=== PATIENT | male | born 1960 | race Caucasian/White ===

== ENCOUNTER 2020-03-09 17:53 | Emergency (ER) | payer BC ==
--- NOTE | 2020-03-09 18:48 | EDM.PDOC ---
<ZenobiaJovani Angelique - Last Filed: 03/09/20 18:35> ED HPI GENERAL MEDICAL PROBLEM - General Chief Complaint: Skin Complaint Stated Complaint: SWOLLEN LEFT ELBOW Time Seen by Provider: 03/09/20 18:10 Source of Information: Reports: Patient History Limitations: Reports: No Limitations - History of Present Illness INITIAL COMMENTS - FREE TEXT/NARRATIVE: Tres is a 60 YO male that presents to the ED for a swollen and inflamed left elbow. Last Tuesday (03/05/2020), he noticed a small "pimple-like" bump on his left elbow near the olecranon. He thought it was an ingrown hair due to pus and hair coming from the bump after applying pressure. Yesterday, he began to have tenderness, redness, and swelling in that elbow. Symptoms span from mid upper arm to mid forearm and have been worsening over the past day. He denies fever, nausea, vomiting, decreased range of motion or strength, or possibility of trauma. Onset: Gradual Onset Date: 03/08/20 Duration: Day(s): Location: Reports: Upper Extremity, Left Quality: Reports: Throbbing Left Elbow Pain Score (Numeric/FACES): 6 - Related Data Allergies Allergy/AdvReac Type Severity Reaction Status Date / Time No Known Allergies Allergy Verified 03/09/20 18:09 Home Meds: Home Meds Albuterol [Proair HFA] 2 inh INH ASDIRECTED PRN 05/05/14 [History] Aspirin [Halfprin] 1 tab PO DAILY 05/05/14 [History] Fexofenadine [Maryann] 1 tab PO DAILY 05/05/14 [History] Levothyroxine Sodium [Synthroid] 237 mcg PO DAILY 05/05/14 [History] Montelukast [Singulair] 10 mg PO DAILY 05/05/14 [History] Tamsulosin [Flomax] 1 tab PO DAILY 05/05/14 [History] amLODIPine Besylate [Amlodipine Besylate] 5 mg PO DAILY 05/05/14 [History] metFORMIN [Glucophage] 500 mg PO DAILY 05/05/14 [History] Cholecalciferol (Vitamin D3) [Vitamin D] 5,000 unit PO DAILY 03/09/20 [History] Cyanocobalamin (Vitamin B-12) [Vitamin B12] 5,000 mcg PO DAILY 03/09/20 [History] Doxycycline [Vibramycin] 100 mg PO BID #19 tab 03/09/20 [Rx] Finasteride 5 mg PO DAILY 03/09/20 [History] Fluticasone Propionate 50 mcg NS BID 03/09/20 [History] Lisinopril/Hydrochlorothiazide [Lisinopril-HCTZ 10-12.5 MG] 1 tab PO DAILY [History] Orlistat [Miguelangel] 60 mg PO QID 03/09/20 [History] Rosuvastatin [Crestor] 10 mg PO DAILY 03/09/20 [History] Vitamin E (Dl,Tocopheryl Acet) [Vitamin E] 450 mg PO DAILY 03/09/20 [History] Past Medical History Other Genitourinary History: prostate Other Endocrine/Metabolic History: thyroid cancer - Past Surgical History GI Surgical History: Reports: Colonoscopy Musculoskeletal Surgical History: Reports: Arthroscopic Knee, Shoulder Surgery Social & Family History - Tobacco Use Smoking Status *Q: Never Smoker - Caffeine Use Caffeine Use: Reports: Coffee - Recreational Drug Use Recreational Drug Use: No ED ROS GENERAL - Review of Systems Review Of Systems: See Below Constitutional: Denies: Fever, Chills GI/Abdominal: Denies: Nausea, Vomiting Musculoskeletal: Reports: Arm Pain, Joint Swelling Skin: Reports: Erythema, Change in Color ED EXAM, SKIN/RASH Exam: See Below Exam Limited By: No Limitations General Appearance: Alert, No Apparent Distress Head: Atraumatic, Normocephalic Respiratory/Chest: No Respiratory Distress, Lungs Clear, Normal Breath Sounds, No Accessory Muscle Use Cardiovascular: Regular Rate, Rhythm, No Gallop, No Murmur, No Rub Extremities: Joint Swelling, Arm Pain, Increased Warmth, Redness Skin: Erythema, Increased Warmth (Area of swelling and erythema from mid upper arm to mid forearm. ) Location, Skin: Upper Extremity, Left Characteristics: Erythematous Associated features: Tenderness, Swelling Departure - Departure Disposition: Home, Self-Care 01 Clinical Impression: Cellulitis of left elbow - Discharge Information Prescriptions: Doxycycline [Vibramycin] 100 mg PO BID #19 tab Instructions: Cellulitis, Adult, [id number] Referrals: Guido Mcfarland MD [Primary Care Provider] - Forms: ED Department Discharge Additional Instructions: You were evaluated in the ER today regarding a suspected skin infection. It does appear that you have a cellulitis. Your skin was marked around the borders of the redness, if this redness should extend 2 finger widths past this initial guido, recommend you seek care for re-evaluation. You were given a antibiotic, doxycycline 100mg BID x 10 days please take as prescribed until the course is done or told otherwise by different provider. Please note that this antibiotic will take at least 48 hours to start working appropriately. You may try to use heat/ice packs to the area to help reduce pain/swelling. You may take 500 mg Tylenol or 600 mg ibuprofen every 6 hours as needed for further pain relief. Do not exceed 4000 mg Tylenol or 3200 mg ibuprofen in a 24-hour time span. The area is not much better by about Tuesday morning, recommend you set up appointment with your primary care provider or seek care for further evaluation and management. Please return to the ER at any time if your symptoms change or worsen. Sepsis Event Note (ED) - Evaluation Sepsis Screening Result: No Definite Risk <Dena Ko - Last Filed: 03/09/20 18:57> Course - Vital Signs Last Recorded V/S: Last Vital Signs Temp 99.0 F 03/09/20 18:10 Pulse 65 03/09/20 18:10 Resp 16 03/09/20 18:10 BP 138/68 03/09/20 18:10 Pulse Ox 100 03/09/20 18:10 - Orders/Labs/Meds Meds: Medications Discontinued Medications Generic Name Dose Route Start Last Admin Trade Name Blasq PRN Reason Stop Dose Admin Doxycycline Hyclate 100 mg 03/09/20 18:50 Vibramycin PO 03/09/20 18:51 ONETIME ONE - Re-Assessments/Exams Free Text/Narrative Re-Assessment/Exam: 03/09/20 18:55 I have read and reviewed the student's HPI and examined the patient and agree with CITLALLI Werner-student. This does have the appearance of a cellulitis. He will be started on doxycycline, 100 mg twice daily for the next 10 days. Ge neral recommendations have been given for this, area has been marked, and he is has been educated on how to watch for the spread of this. The area itself measures roughly 12 cm x 12 cm with about 2+ swelling of the elbow itself. Departure - Departure Time of Disposition: 18:56 Condition: Good - Discharge Information *PRESCRIPTION DRUG MONITORING PROGRAM REVIEWED*: No *COPY OF PRESCRIPTION DRUG MONITORING REPORT IN PATIENT AKASH: No Sepsis Event Note (ED) - Focused Exam Vital Signs: Vital Signs Temp Pulse Resp BP Pulse Ox 03/09/20 18:10 99.0 F 65 16 138/68 100
[2020-03-09] MEDS ORDERED: Doxycycline 100 MG Cap PO ONE (18:50)
== END 2020-03-09 19:10 | disposition home or self-care (01) ==
LOC: JD.ED 17:53
DX: L03.114 Cellulitis of left upper limb (principal); Z79.82 Long term (current) use of aspirin; Z79.899 Other long term (current) drug therapy
CPT/HCPCS: 99283; A9270

== ENCOUNTER 2020-03-12 21:56 | Emergency (ER) | payer BC ==
--- NOTE | 2020-03-12 22:36 | EDM.PDOC ---
ED HPI GENERAL MEDICAL PROBLEM - General Chief Complaint: Upper Extremity Injury/Pain Stated Complaint: LT ELBOW INFECTION Time Seen by Provider: 03/12/20 22:14 Source of Information: Reports: Patient History Limitations: Reports: No Limitations - History of Present Illness INITIAL COMMENTS - FREE TEXT/NARRATIVE: Mr. Cotton is a very pleasant 60-year-old gentleman who, medical records indicate, discovered a pimple-like lesion over the extensor surface of his left elbow on 03/05/2020. He pinched it, then noticed increased swelling and erythema to the elbow region on 03/08/2020. He had not had a fever. He was seen in this ED on 03/09/2020, and diagnosed with cellulitis. He was prescribed a 10-day course of doxycycline 100 mg po BID and advised to follow-up with his PCP if his symptoms did not improve within 48 hours. The patient now returns to the ED stating that the erythema that was initially limited to his elbow region has now spread up and down his left upper extremity. He has not had a fever, and he denies having discomfort to his left elbow with range of motion, other than when he fully flexes his elbow, due to tautness in the skin. He states that he has been compliant with the doxycycline, as prescribed. He has not followed up with his PCP. Here in the ED, the patient is found to be slightly bradycardic at 57 bpm, otherwise, he is hemodynamically stable, afebrile, saturating 95% on room air. Other than the left arm issue, the patient denies recent fever, chills, sore throat, ear pain, nasal or sinus congestion, cough, dyspnea, chest pain, palpitations, nausea, vomiting, constipation, diarrhea, abdominal pain, urinary symptoms, recent weight gain or weight loss, recent bloody bowel movements or black bowel movements, recent joint aches, headaches, or rashes. The patient's PCP is Dr. Aristides Mcfarland. His [facility] Inspector is in [place], [place]. Left Elbow Pain Score (Numeric/FACES): 6 - Related Data Allergies Allergy/AdvReac Type Severity Reaction Status Date / Time No Known Allergies Allergy Verified 03/12/20 22:09 Home Meds: Home Meds Albuterol [Proair HFA] 2 inh INH ASDIRECTED PRN 05/05/14 [History] Aspirin [Halfprin] 1 tab PO DAILY 05/05/14 [History] Fexofenadine [Maryann] 1 tab PO DAILY 05/05/14 [History] Levothyroxine Sodium [Synthroid] 237 mcg PO DAILY 05/05/14 [History] Montelukast [Singulair] 10 mg PO DAILY 05/05/14 [History] Tamsulosin [Flomax] 1 tab PO DAILY 05/05/14 [History] amLODIPine Besylate [Amlodipine Besylate] 5 mg PO DAILY 05/05/14 [History] metFORMIN [Glucophage] 500 mg PO TID 05/05/14 [History] Cholecalciferol (Vitamin D3) [Vitamin D] 5,000 unit PO DAILY 03/09/20 [History] Cyanocobalamin (Vitamin B-12) [Vitamin B12] 5,000 mcg PO DAILY 03/09/20 [History] Doxycycline [Vibramycin] 100 mg PO BID #19 tab 03/09/20 [Rx] Finasteride 5 mg PO DAILY 03/09/20 [History] Fluticasone Propionate 50 mcg NS BID 03/09/20 [History] Lisinopril/Hydrochlorothiazide [Lisinopril-HCTZ 10-12.5 MG] 1 tab PO DAILY 03/09/20 [History] Orlistat [Miguelangel] 60 mg PO QID 03/09/20 [History] Rosuvastatin [Crestor] 10 mg PO DAILY 03/09/20 [History] Vitamin E (Dl,Tocopheryl Acet) [Vitamin E] 450 mg PO DAILY 03/09/20 [History] cephALEXin [Cephalexin] 1 tab PO Q6H #40 tablet 03/13/20 [Rx] Past Medical History HEENT History: Reports: Allergic Rhinitis, Hard of Hearing Cardiovascular History: Reports: Hypertension Genitourinary History: Reports: BPH, Renal Calculus Musculoskeletal History: Reports: Osteoarthritis Endocrine/Metabolic History: Reports: Hypothyroidism (following thyroidectomy), Other (See Below) (Prediabetes) Oncologic (Cancer) History: Reports: Thyroid (s/p thyroidectomy) - Infectious Disease History Infectious Disease History: Reports: Chicken Pox, Measles, Mumps - Past Surgical History HEENT Surgical History: Reports: Oral Surgery (wisdom teeth extraction) GI Surgical History: Reports: Colonoscopy (x 4) Neurological Surgical History: Reports: Lumbar Spine (L3-S1 fusion) Musculoskeletal Surgical History: Reports: Arthroscopic Knee (left), Shoulder Surgery (bilateral arthroscopic) Oncologic Surgical History: Reports: Other (See Below) (thyroidectomy 2009) Social & Family History - Tobacco Use Smoking Status *Q: Never Smoker - Caffeine Use Caffeine Use: Reports: Coffee - Alcohol Use Alcohol Use History: Yes Alcohol Use Frequency: Socially - Recreational Drug Use Recreational Drug Use: No - Living Situation & Occupation Living situation: Reports: , with Spouse, with Family (disabled son) Occupation: Retired Review of Systems - Review of Systems Review Of Systems: Comprehensive ROS is negative, except as noted in HPI. ED EXAM, GENERAL - Physical Exam Exam: See Below Exam Limited By: No Limitations General Appearance: Alert, WD/WN, No Apparent Distress Extremities: Other (The patient has significant erythema with mild swelling to the medial aspect of his left upper extremity, extending from fdc up his upper arm to his wrist. He also has some indurated swelling to the extensor surface of his left elbow. Neurovascular status of his left upper extremity is intact.) Course - Vital Signs Last Recorded V/S: Last Vital Signs Temp 36.4 C 03/12/20 22:05 Pulse 57 L 03/12/20 22:05 Resp 18 03/12/20 22:05 BP 122/68 03/12/20 22:05 Pulse Ox 95 03/12/20 22:05 - Orders/Labs/Meds Orders: Active Orders 24 hr Category Date Time Status Peripheral IV Care [RC] . DIRECTED Care 03/13/20 00:04 Active Sodium Chloride 0.9% [Saline Flush] Med 03/13/20 00:04 Active 10 ml FLUSH ASDIRECTED PRN Peripheral IV Insertion Adult [OM.PC] Routine Oth 03/13/20 00:04 Ordered Medication Orders Sodium Chloride (Saline Flush) 10 ml FLUSH ASDIRECTED PRN PRN Reason: Keep Vein Open Last Admin: 03/13/20 00:12 Dose: 10 ml Documented by: JULY Labs: Laboratory Tests 03/12/20 Range/Units 22:33 MRSA (PCR) Negative Meds: Medications Generic Name Dose Route Start Last Admin Trade Name Freq PRN Reason Stop Dose Admin Sodium Chloride 10 ml 03/13/20 00:04 03/13/20 00:12 Saline Flush FLUSH 10 ml ASDIRECTED PRN Administration Keep Vein Open Discontinued Medications Generic Name Dose Route Start Last Admin Trade Name Hardeep PRN Reason Stop Dose Admin Cefazolin Sodium/Dextrose 2 gm 50 mls @ 100 mls/hr 03/13/20 00:03 03/13/20 00:12 / Premix IV 03/13/20 00:32 100 mls/hr ONETIME STA Administration - Re-Assessments/Exams Free Text/Narrative Re-Assessment/Exam: 03/12/20 22:33 As above, the patient initially developed a pimple on his left elbow on or about 03/05/2020, which he pinched, which then became erythematous and swollen on or about 03/08/2020, he was seen in this ED on 03/09/2020, diagnosed with cellulitis, and started on doxycycline, which he states he has been taking as prescribed. He now returns to the ED with worsening cellulitis of his left upper extremity, now down to his wrist, and as far up as fdc up his upper arm. No recent fever. For today's purposes, I have ordered an MRSA screen by PCR, which should allow me to better direct his future antibiotic course. 03/13/20 00:03 The patient's MRSA screen by PCR has returned negative. I will order 2 g of IV Ancef. 03/13/20 00:36 The patient's Ancef has nearly finished infusing. I will discharge him home with a prescription for a 10-day course of cephalexin that I would like him to start first thing in the morning. He was instructed to stop taking the doxycycline. He then handed me his bottle or remaining doxycycline tablets and asked me to dispose of them for him. I will forward them to the pharmacy. Departure - Departure Time of Disposition: 00:38 Disposition: Home, Self-Care 01 Condition: Good Clinical Impression: Cellulitis of left upper extremity - Discharge Information *PRESCRIPTION DRUG MONITORING PROGRAM REVIEWED*: Not Applicable *COPY OF PRESCRIPTION DRUG MONITORING REPORT IN PATIENT AKASH: Not Applicable Prescriptions: cephALEXin [Cephalexin] 1 tab PO Q6H #40 tablet Instructions: Cellulitis, Adult, [id number] Referrals: Aristides Mcfarland MD [Primary Care Provider] - Forms: ED Department Discharge Additional Instructions: You were seen in the emergency room for worsening cellulitis of your left upper extremity. Work-up in the ER included an MRSA screen by PCR, which returned negative. You are not colonized by MRSA. You were treated with a 2 g dose of the antibiotic cefazolin (Ancef) in the ER. A prescription for the antibiotic cephalexin (Keflex) has been sent to the [facility] located in the [employer] store. Take 1 tablet of cephalexin every 6 hours, starting this morning, , 03/13/2020, as prescribed. Finish the entire prescription unless told otherwise by your doctor. You asked us to dispose of your left-over doxycycline. If any other problems, please do not hesitate to return to the ER. Sepsis Event Note (ED) - Evaluation Sepsis Screening Result: No Definite Risk - Focused Exam Vital Signs: Vital Signs Temp Pulse Resp BP Pulse Ox 03/12/20 22:05 36.4 C 57 L 18 122/68 95 - My Orders Last 24 Hours: My Active Orders 03/13/20 00:04 Peripheral IV Care [RC] . DIRECTED Sodium Chloride 0.9% [Saline Flush] 10 ml FLUSH ASDIRECTED PRN Peripheral IV Insertion Adult [OM.PC] Routine - Assessment/Plan Last 24 Hours: My Active Orders 03/13/20 00:04 Peripheral IV Care [RC] . DIRECTED Sodium Chloride 0.9% [Saline Flush] 10 ml FLUSH ASDIRECTED PRN Peripheral IV Insertion Adult [OM.PC] Routine
[2020-03-13] MEDS ORDERED: ceFAZolin 2 GM in Premix Bag 1 BAG IV STA (00:03)
[2020-03-13] MEDS ORDERED: Sodium Chloride 0.9% 10 ML Syringe FLUSH PRN (00:04)
== END 2020-03-13 00:55 | disposition home or self-care (01) ==
LOC: JD.ED 21:56
DX: L03.114 Cellulitis of left upper limb (principal); I10 Essential (primary) hypertension; E03.9 Hypothyroidism, unspecified; N40.0 Benign prostatic hyperplasia without lower urinary tract symptoms; Z79.82 Long term (current) use of aspirin; Z79.899 Other long term (current) drug therapy; Z98.890 Other specified postprocedural states
CPT/HCPCS: 87641; 96365; 99283; J0690

== ENCOUNTER 2024-01-30 18:14 | Emergency (ER) | payer BC ==
[2024-01-30] MEDS: Sodium Chloride 0.9% 10 ML Syringe FLUSH PRN (19:06)
[2024-01-30] MEDS: Lidocaine 1% 10 ML MDV INJECT ONE (19:11)
[2024-01-30] MEDS: cefTRIAXone 2 GM in Sodium Chloride 0.9% 100 ML IV ONE (19:12)
[2024-01-30] MEDS: Bupivacaine 0.5% 10 ML SDV INJECT ONE (19:12)
[2024-01-30 19:16] LABS: BASOPHILS PERCENT AUTO 0.3 % (0.0-1.0); EOSINOPHILS ABSOLUTE AUTO 0.1 K/mm3 (0.0-0.4); EOSINOPHILS PERCENT AUTO 1.1 % (0.0-6.0); HEMATOCRIT 40.9 % (42.0-52.0); HEMOGLOBIN 13.5 gm/dl (14.0-18.0); IMMATURE GRAN ABSOLUTE AUTO 0.02 K/mm3 (0.00-0.05); IMMATURE GRAN PERCENT AUTO 0.3 % (0.0-0.4); LYMPHOCYTES ABSOLUTE AUTO 1.3 K/mm3 (1.0-4.8); LYMPHOCYTES PERCENT AUTO 19.3 % (24.0-44.0); MEAN CORPUSCULAR HEMOGLOBIN 27.4 pg (28.0-32.0); MEAN CORPUSCULAR VOLUME 83.1 fl (83.0-99.0); MEAN PLATELET VOLUME 9.6 fl (9.4-12.4); MONOCYTES ABSOLUTE AUTO 0.5 K/mm3 (0.0-0.8); MONOCYTES PERCENT AUTO 7.5 % (0.0-8.0); NEUTROPHILS ABSOLUTE AUTO 4.7 K/mm3 (1.8-7.7); NEUTROPHILS PERCENT AUTO 71.5 % (41.0-71.0); PLATELET COUNT,PLT 211 K/mm3 (150-400); RED BLOOD CELL COUNT 4.92 M/mm3 (4.52-5.90); WHITE BLOOD CELL COUNT,WBC 6.57 K/mm3 (3.9-11.3)
[2024-01-30 19:38] LABS: A/G RATIO 1.1 (1-2); ALBUMIN 3.5 g/dl (3.4-5.0); ANION GAP 13.2 (5-15); BILIRUBIN TOTAL 0.5 mg/dL (0.2-1.0); BUN/CREATININE RATIO 15.6 (14-18); C-REACTIVE PROTEIN 0.49 mg/dL (<0.30); CALCIUM 8.7 mg/dL (8.5-10.1); CREATININE 0.9 mg/dL (0.7-1.3); EST CRCL DRUG DOSING (CG) 85.62 mL/min; POTASSIUM,K 3.2 mEq/L (3.5-5.1); PROTEIN TOTAL,TP 6.7 g/dl (6.4-8.2)
== END 2024-01-30 19:59 | disposition home or self-care (01) ==
LOC: JD.ED 18:14
DX: L03.011 Cellulitis of right finger (principal); I10 Essential (primary) hypertension; J45.909 Unspecified asthma, uncomplicated; M19.90 Unspecified osteoarthritis, unspecified site; E03.9 Hypothyroidism, unspecified; Z86.16 Personal history of COVID-19; Z79.899 Other long term (current) drug therapy; Z79.82 Long term (current) use of aspirin; Z79.84 Long term (current) use of oral hypoglycemic drugs; Z88.8 Allergy status to other drugs, medicaments and biological substances
CPT/HCPCS: 10060; 36415; 80053; 85025; 86140; 96365; 99283-25; 99284; J0665; J0696; J3490

== ENCOUNTER 2024-02-02 20:13 | Emergency (ER) | payer BC | END 2024-02-02 21:34 | disposition home or self-care (01) | LOC: JD.ED 20:13 | DX: L03.011 Cellulitis of right finger (principal); I10 Essential (primary) hypertension; E03.9 Hypothyroidism, unspecified; Z86.16 Personal history of COVID-19; Z79.82 Long term (current) use of aspirin; Z79.890 Hormone replacement therapy; Z79.899 Other long term (current) drug therapy; Z88.8 Allergy status to other drugs, medicaments and biological substances | CPT/HCPCS: 73140-26-F7; 73140-F7; 99283 ==